=== PATIENT | male | born 1965 | race Caucasian/White ===

== ENCOUNTER → 2018-01-26 | Outpatient (CLI) | payer BC ==
[~2018-01-26] MED LIST: ALDACTONE25 MG PO; AMLODIPINE BESYL5 M1 PO; ASA81BEC PO; ATIVAN1 MG PO; ATORVASTATIN CA40 MG PO; BRILINTA90 MG PO; CARVEDILOL25 MG PO; CLARITIN10 MG PO; CLONIDINE0.1 PO; COZAAR 50 MG TA50 M2 PO; CRESTOR10 MG PO; EFFIENT10 MG PO; FISH OIL 1,0001 EAC5 PO; FISH OIL 1,001000 M2 PO; FLEXERIL PO; HYDROCHLOROTHIA25 M2 PO; HYDROCODON-ACE1 EAC7 PO; IBUPROFEN 200200 M1 PO; LOSARTAN-HCTZ1 EAC3 PO; MEDROLDOSEPACK PO; METFORMIN HCL500 MG PO; MULTIVITAMINS PO; NICOTINE TRANSD21 M1; NITROGLYCERIN0.4 MG SUBLING; ONDANSETRON HCL4 M2 PO; PERCOCET 5-3251 EACH PO; TRANSDERM-SCO1 PATC1 TD; TYLENOL325 MG PO; UNICOMPLEX M TA1 TA1 PO; WELLBUTRIN SR150 MG PO; ZETIA10 MG PO
--- NOTE | 2018-01-29 07:19 | TST ---
[place] [address] TREADMILL STRESS TEST Name: ARNOLD AQUINO Room: [facility]#: [id number] Admission: 01/26/18 Attend Phys: Maurizio Rodriguez Discharge: Date of : 69 Date of Service: 01/26/18 1341 Report #: [id number] THIS REPORT FOR: //name// CC: Gage Mcocy DATE OF SERVICE: 01/26/2018 TYPE OF THE TEST: Exercise stress test. INDICATIONS: Exercise stress test was requested in this patient with a history of coronary artery disease. PROCEDURE: The patient was exercised on a Norman protocol from a pretest heart rate of 78, blood pressure 134/80. The patient was able to exercise for 6 minutes. The patient did have a mild chest pressure with exercise. The patient's resting ECG showed a normal sinus rhythm with nonspecific intraventricular conduction defect and septal Q-waves at baseline. The patient had a pretest heart rate of 78, blood pressure 134/80. RESULTS: The patient achieved a peak heart rate of 152, which was greater than 85% of maximum predicted heart rate for the patient's age. Peak blood pressure was 188/94. In recovery, the patient's heart rate 90, blood pressure 140/96. With exercise, the patient had occasional PVC. The patient did develop ST segment depression with exercise and at peak exercise was noted to have J-point depression, but there was no significant ST-segment depression at 80 milliseconds after the J-point. In the recovery, the patient continued to have occasional PVC and ventricular couplet as well as ventricular triplets. IMPRESSION: 1. Resting EKG abnormality. 2. Adequate exercise tolerance. 3. Mild chest pain reproduced with exercise. 4. No additional ST segment changes noted with exercise. 5. Intermediate stress test for myocardial ischemia secondary to baseline ECG changes and reproduction of chest pain with exercise. 6. Intermediate risk exercise stress test for future cardiac events. <ELECTRONICALLY SIGNED> By: Miles Diamond MD, FACC 01/29/18 0719 1341 2338 Miles Diamond MD, FACC /nt
== END ==
LOC: M.CRD 12:17
DX: I25.10 Atherosclerotic heart disease of native coronary artery without angina pectoris (principal)

== ENCOUNTER → 2019-08-28 | Outpatient (CLI) | payer BC | LOC: M.MRI 14:01 | DX: M51.17 Intervertebral disc disorders with radiculopathy, lumbosacral region (principal); M47.26 Other spondylosis with radiculopathy, lumbar region ==

== ENCOUNTER 2020-06-30 09:21 | Emergency (ER) | payer BC ==
[~2020-06-30] VITALS: Ht 180.3 cm; Wt 140.6 kg
[2020-06-30 09:52] LABS: ABSOLUTE EOSINOPHILS 0.1 thou/uL (0.0-0.7); ABSOLUTE LYMPHOCYTES 3.4 thou/uL (0.8-5.3); ABSOLUTE MONOCYTES 0.5 thou/uL (0.0-1.2); ABSOLUTE NEUTROPHILS 4.8 thou/uL (1.6-8.1); BASOPHILS 0.4 %; EOSINOPHILS 1.2 %; HEMATOCRIT 40.3 % (42.0-52.0); HEMOGLOBIN 13.9 gm/dL (14.0-18.0); LYMPHOCYTES 38.2 %; MCH 29.9 pg (26.0-34.0); MCHC 34.5 g/dL (28.0-37.0); MCV 86.8 fL (80.0-100.0); MONOCYTES 5.9 %; MPV 8.3 fl. (7.2-11.1); NUCLEATED RBCS 0 /100WBC; PLATELET COUNT* 175 thou/uL (150-400); POLYS 54.3 %; RBC 4.64 mil/uL (4.50-6.00); RDW-CV 13.4 % (10.5-14.5); WBC 8.9 thou/uL (4.0-11.0)
[2020-06-30 09:57] LABS: CALCIUM 8.1 mg/dL (8.5-10.1); CREATININE 0.9 mg/dL (0.6-1.3); POTASSIUM 3.7 mmol/L (3.5-5.1)
[2020-06-30 10:09] LABS: ALBUMIN 3.3 g/dL (3.4-5.0); CK-MB MASS 3.1 ng/mL (<0.5-3.6); MAGNESIUM 2.1 mg/dL (1.8-2.4); TOTAL BILIRUBIN 0.5 mg/dL (<0.1-1.0); TOTAL PROTEIN 6.4 g/dL (6.4-8.2)
[2020-06-30 10:18] LABS: APTT 24.5 Seconds (25.0-31.3); PROTIME 10.4 Seconds (9.20-11.50)
[2020-06-30 11:45] VITALS: BP 113/59
--- NOTE | 2020-06-30 14:25 | EKG ---
[place] [address] ELECTROCARDIOGRAM REPORT Name: ARNOLD AQUINO KENNY Room: [facility]#: [id number] Admission: 06/30/20 Attend Phys: Discharge: 06/30/20 Date of : 69 Date of Service: 06/30/20924 Report #: [id number] THIS REPORT FOR: //name// [facility] ED Test Date: 2020-06-30 Test Time: 09:25:36 Pat Name: ARNOLD AQUINO Department: Room: Gender: [employer] System Installer: [facility] : 1965 Requested By: Arnel Wilcox Order Number: [id number] MD: Miles Diamond Measurements Intervals Scurry Rate: 81 P: 32 FL: 180 QRS: -33 QRSD: 105 T: 57 QT: 405 QTc: 470 Interpretive Statements Sinus rhythm Left anterior fasicular block Compared to ECG 11/07/2016 07:45:52 no change Electronically Signed On 06-30-2020 14:25:01 CURATOR OF PHOTOGRAPHY AND PRINTS by Miles Diamond [email or web address] <ELECTRONICALLY SIGNED> By: Miles Diamond MD, [facility] 06/30/20 1425 4 4 Miles Diamond MD, [facility] /EPI
== END 2020-06-30 11:45 | disposition home or self-care (01) ==
LOC: M.ERS 09:21
PROVIDERS: Family Medicine
DX: R07.89 Other chest pain (principal); I10 Essential (primary) hypertension; E78.00 Pure hypercholesterolemia, unspecified; I25.2 Old myocardial infarction; K21.9 Gastro-esophageal reflux disease without esophagitis; Z91.018 Allergy to other foods; Z79.82 Long term (current) use of aspirin; Z79.899 Other long term (current) drug therapy